=== PATIENT | female | born 1945 | race Caucasian/White ===

== ENCOUNTER 2023-07-13 13:42 | Inpatient (IN) | payer MEDICARE, OTHER, SELFPAY ==
--- NOTE | ~2023-07-13 | CT_ITS ---
EXAMINATION: CT HEAD WITHOUT CONTRAST CLINICAL INFORMATION: Atypical psychosis. COMPARISON: None. TECHNIQUE: Contiguous axial imaging was performed from the skullbase to vertex without intravenous administration of contrast. This CT examination was performed using dose optimization techniques as appropriate, variously including the following: *Automated exposure control *Adjustment of mA and/or kV according to patient size (this includes techniques or standardized protocols for targeted exams where dose is matched to indication/reason for exam; i.e. extremities or head) *Use of iterative reconstruction technique DLP: 686 mGy-cm. FINDINGS: There is no evidence of acute intracranial hemorrhage or territorial infarction. No abnormal mass effect or midline shift is seen. Reich to white matter differentiation is well preserved. No extra-axial fluid collections are identified. Moderate generalized brain parenchymal volume loss noted with concordant ex vacuo prominence of the ventricles. Mild small vessel ischemic changes present in the periventricular white matter. The osseous structures and soft tissues are normal. The mastoid air cells and visualized portions of the paranasal sinuses are well aerated. CT/CT head/brain wo IV con IMPRESSION: No acute intracranial hemorrhage or territorial infarction. Moderate diffuse brain parenchymal volume loss and mild chronic white matter microangiopathy.
[2023-07-13 13:52] VITALS: BP 195/92; BP 220/90; PULSE 103; PULSE 97; RESP 20; TEMP 36.2; O2SAT 100; O2SAT 99; BMI 29.7
--- NOTE | 2023-07-13 14:08 | PC.NURSE ---
pt biba from [facility] on section 12. section 12 states pt unable to care for self due to lack of sleep and not eating, irritable delusions, self harm and no medication compliance. pt currently denies si/hi. this rn assessed pt skin, no visible wounds from self harm noted, pt denies self harm. pt requesting to go home at this time. pt refusing labs at this time. 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 pt currently calm and cooperative.pt reports not wanting contact with son or daughter at this time. Provider aware and at bedside.
[2023-07-13 14:15] LABS: Appearance Urine Cloudy; Color Urine Yellow; Glucose Urine UA Negative (Negative); PH 6.5 (5.0-9.0); Urine Blood Negative (Negative)
[2023-07-13 14:16] LABS: Leukocyte Esterase Urine Small (1+) (Negative); Nitrite Urine Positive (Negative); Specific Gravity - Urine 1.015 (1.005-1.025); UMIC TRIGGER UACC YES; Urine Ketones Negative (Negative); Urine Protein 30 (1+) mg/dL (Neg-Trace)
[2023-07-13 14:19] LABS: Bacteria Urine 4+ (None Seen); Hyaline Casts Urine 0-2 /LPF (0-2); RBC Urine 0-2 /HPF (0-2); UACC Culture Trigger YES
--- NOTE | 2023-07-13 14:20 | ED.PSYCH ---
HPI - Psych General Chief Complaint: Behavioral Concerns Stated Complaint: SI/HTN 220/90 Time Seen by Provider: 07/13/23 14:04 Source: patient Mode of arrival: EMS Limitations: no limitations History of Present Illness HPI Narrative: patient comes to emergency room via ambulance from of psychiatric outpatient facility on a Section 12. According to EMS, patient was section for being delusional and unable to take care of herself. according to a section 12, patient is not eating, patient is not sleeping and is irritable and having delusions. When I spoke to the patient, patient is alert and oriented x3. Articulate and coherent, patient states that she went to her psychiatric session today with her daughter. She had the impression that everything was going well. When she was exiting the office, a [place] 9 police officer approached the patient and told her to go into the stretcher. Patient was confused as to why they were forcing her to get into the stretcher. Patient asked for an explanation which was not given to her. Patient became combative, had to be restrained and was brought to the emergency room. Arrival, patient calm, cooperative, states that she does not know why they would ask her to come to the emergency room because she is not suicidal or homicidal. Patient states that she has no trouble taking care of herself. In fact, patient takes care for self and also is helping to take care of her knees and will be soon helping take care of another family member who is getting a hip replacement and will be released from the hospital in the next few days. Patient states that she cooks for herself and her niece. patient states that she takes showers, keeps herself clean her house. patient states that she is very confused and upset as to why she was brought to the emergency room against her will on a Section 12 based on lies. patient suspects that this seems understanding is secondary to her daughter not liking the patient's boyfriend. Patient states that she is well aware that her children do not like her new boyfriend which she has been dating for several months. Patient states that she is a 77-year-old grown woman and has a ride to choose her partner. Patient states that she would imagine that her children would be happy for her, but instead, they keep trying to make her break up with her partner Related Data Home Medications ?Medication ?Instructions ?Recorded ?Confirmed acetaminophen 650 mg 1,300 mg PO Q12H PRN Pain, Moderate 07/13/23 07/13/23 tablet,extended release amlodipine 10 mg tablet 10 mg PO DAILY 07/13/23 07/13/23 furosemide 20 mg tablet 20 mg PO DAILY 07/13/23 07/13/23 glipizide 5 mg tablet 5 mg PO DAILY 07/13/23 07/13/23 metoprolol succinate 25 mg 25 mg PO DAILY 07/13/23 07/13/23 tablet,extended release 24 hr rosuvastatin 20 mg tablet 20 mg PO DAILY 07/13/23 07/13/23 Previous Rx's ?Medication ?Instructions ?Recorded cefuroxime axetil 250 mg tablet 250 mg PO BID #14 tabs 07/19/23 escitalopram oxalate 5 mg tablet 5 mg PO DAILY #30 tabs 07/19/23 Allergies Allergy/AdvReac Type Severity Reaction Status Date / Time No Known Allergies Allergy Verified 07/13/23 13:51 Review of Systems Review of Systems: Constitutional : No Weight loss, No Fever, No Chills, No Night Sweats, No Fatigue, No Malaise ENT/Mouth : No Hearing loss, No Ear Pain, No Nasal Congestion, No Sinus Pain, No Hoarseness, No sore throat, No Rhinorrhea, No Swallowing Difficulty Eyes: No Eye Pain, No Swelling, No Redness, No Foreign Body, No Discharge, No Vision Changes Cardiovascular : No Chest Pain, No SOB, No Dyspnea on Exertion, No Orthopnea, No Edema, No Palpitations Respiratory : No Cough, No Sputum, No Wheezing, No Smoke Exposure, No Dyspnea Gastrointestinal : No Nausea, No Vomiting, No Diarrhea, No Constipation, No abdominal Pain, No Hematochezia, No Melena Genitourinary : no irregular bleeding, No Dysuria, No Urinary Frequency, No Hematuria, No Urinary Incontinence, No Urgency, No Flank Pain, No Urinary Flow Changes, No Hesitancy Musculoskeletal : No joint pain, No Myalgias, No Joint Swelling Skin : No Skin Lesions, No rash Neuro : No Weakness, No Numbness, No Paresthesias, No Loss of Consciousness, No Dizziness, No Headache Psych : No Anxiety/Panic, No Depression, No SI/HI/AH/VH, No Social Issues, Heme/Lymph: No Bruising, No Bleeding,No Lymphadenopathy Endocrine : No Polyuria, No Polydipsia, No Temperature Intolerance PMFSH Social History Social History Household Members: Significant Other and Children Housing: House Do you presently have visiting nurse or other home services: No Alcohol intake: never Patient Tobacco Use Status: Former Tobacco user e-Cigarette/Vaping Use: Never Used Second Hand Smoke Exposure: Yes Substance Use Type: Caffiene service: No Sexual orientation: Straight/Heterosexual Physical Exam Vital Signs: Vital Signs: Last Vital Signs Temp 97.3 F 07/19/23 18:00 Pulse 59 07/19/23 18:00 Resp 16 07/19/23 18:00 BP 129/60 07/19/23 18:00 Pulse Ox 100 07/19/23 18:00 O2 Del Method Room Air 07/19/23 18:00 BMI result Body Mass Index 29.7 Const: Other: Appearance: Alert. Oriented X3. No acute distress. coherent Eyes: Pupils equal, round and reactive to light. ENT: Pharynx normal. Neck: Normal inspection. Neck supple. No lymph nodes noted. No crepitus CVS: Normal heart rate and rhythm. Pulses normal. Normal S1 and S2 Respiratory: No respiratory distress. Breath sounds normal. No Wheezing. No rales Abdomen: Soft and nontender. No rigidity. No distention. Skin: Skin warm and dry. Normal skin color. Normal skin turgor. Extremities: No lower extremity edema. No Lacerations. No Rash Neuro: Oriented X 3. No motor deficit. No sensory deficit. Moving all extremities. No slurred speech. CN 2 through 12 grossly intact Psych: calm, cooperative, normal affect Course Course Course Narrative: - patient states that she does not want to talk to her daughter as she is very upset with today's events - all of patient's labs pending - care team consult pending Medications Administered Discontinued Medications Generic Name Dose Route Start Last Admin Trade Name Freq PRN Reason Stop Dose Admin Acetaminophen 650 mg 07/13/23 19:04 07/18/23 09:31 Acetaminophen 325 Mg Tablet PO 650 mg Q6H PRN Administration Pain, Moderate(Pain Scale 4-6) Amlodipine Besylate 10 mg 07/14/23 09:00 07/20/23 09:24 Amlodipine Besylate 10 Mg Tablet PO 10 mg DAILY SOM Administration Protocol Atorvastatin Calcium 80 mg 07/14/23 09:00 07/20/23 09:24 Atorvastatin Calcium 80 Mg Tablet PO 80 mg DAILY SOM Administration Cefuroxime Axetil 500 mg 07/13/23 14:45 07/13/23 15:12 Cefuroxime Axetil 500 Mg Tablet PO 07/13/23 14:46 500 mg ONCE ONE Administration Cefuroxime Axetil 250 mg 07/14/23 09:00 07/20/23 09:24 Cefuroxime Axetil 250 Mg Tablet PO 250 mg BID SOM Administration Diphenhydramine HCl 50 mg 07/13/23 20:53 07/13/23 20:56 Diphenhydramine Hcl 25 Mg Capsule PO 07/13/23 20:54 50 mg ONCE ONE Administration Escitalopram Oxalate 5 mg 07/18/23 09:00 07/20/23 09:24 Escitalopram Oxalate 5 Mg Tablet PO 5 mg DAILY SOM Administration Furosemide 20 mg 07/14/23 09:00 07/17/23 09:35 Furosemide 20 Mg Tablet PO 20 mg DAILY SOM Administration Protocol Gabapentin 300 mg 07/19/23 21:00 07/20/23 09:24 Gabapentin 300 Mg Capsule PO 300 mg BID SOM Administration Glipizide 5 mg 07/14/23 09:00 07/17/23 09:50 Glipizide 5 Mg Tablet PO Not Given DAILY SOM Hydroxyzine HCl 25 mg 07/14/23 15:34 07/19/23 20:13 Hydroxyzine Hcl 25 Mg Tablet PO 25 mg Q6H PRN Administration Anxiety Melatonin 3 mg 07/16/23 21:23 07/19/23 20:12 Melatonin 3 Mg Tablet PO 3 mg BEDTIME PRN Administration insomnia Metoprolol Succinate 25 mg 07/14/23 09:00 07/20/23 09:24 Metoprolol Succinate Er 25 Mg Tab.Er.24h PO 25 mg DAILY SOM Administration Protocol Tramadol HCl 25 mg 07/17/23 10:56 07/17/23 11:24 Tramadol Hcl 50 Mg Tablet PO 07/17/23 10:57 25 mg ONCE ONE Administration Tramadol HCl 12.5 mg 07/18/23 10:58 07/19/23 17:10 Tramadol Hcl 50 Mg Tablet PO 12.5 mg Q6H PRN Administration Pain, Moderate(Pain Scale 4-6) Trazodone HCl 50 mg 07/14/23 15:34 07/18/23 20:53 Trazodone Hcl 50 Mg Tablet PO 50 mg BEDTIME MRX1 PRN Administration Insomnia Medical Decision Making Medical Decision Making MDM Narrative: - patient has a UTI, p.o. cefuroxime given - physician observation started at 14:30 Lab Data 07/13/23 14:36 07/17/23 11:16 Labs: Lab Results 07/13/23 07/13/23 07/14/23 Range/Units 14:08 14:36 09:53 WBC 5.9 (4.8-10.8) X10*3/uL RBC 4.69 (4.20-5.50) X10*6/uL Hgb 14.4 (12.0-16.0) g/dl Hct 42.2 (37.0-47.0) % MCV 90.0 (80.0-98.0) fL MCH 30.7 (27.0-33.0) pg MCHC 34.1 (31.0-35.0) g/dl RDW 13.9 (11.0-16.0) % Plt Count 136 L (160-400) X10*3/uL MPV 9.6 (9.4-12.3) fL Immature Gran % (Auto) 0.2 (0.0-0.4) % Neut % (Auto) 67.5 (45-73) % Lymph % (Auto) 24.6 (20-40) % Granite % (Auto) 5.7 (2-11) % Eos % (Auto) 1.5 (0-4) % Baso % (Auto) 0.5 (0-2) % Lymph # (Auto) 1.5 (1.2-4.9) X10*3/uL Granite # (Auto) 0.3 (0.1-1.2) X10*3/uL Eos # (Auto) 0.1 (0.0-0.4) X10*3/uL Baso # (Auto) 0.0 (0.0-0.2) X10*3/uL Abs Immat Gran (auto) 0.01 (0.00-0.03) X10*3/uL Absolute Neuts (auto) 4.0 (2.0-8.3) x10*3/uL Absolute Nucleated RBC 0.000 (0.0-0.012) X10*3/uL Nucleated RBC % (auto) 0.0 (0.0-0.2) /100WBC Sodium 143 (135-145) mmol/L Potassium 4.2 (3.3-5.1) mmol/L Chloride 109 H (96-108) mmol/L Carbon Dioxide 21 L (22-29) mmol/L Anion Gap 17 (12-20) BUN 17 H (9-16) mg/dL Creatinine 1.35 (0.5-1.4) mg/dL Estim Creat Clear Calc 37.3 Estimated GFR 38 Random Glucose 139 H (60-115) mg/dL Calcium 10.9 H (8.4-10.2) mg/dL Total Bilirubin 1.4 H (0.0-1.0) mg/dL AST 29 (5-31) U/L ALT 17 (0-31) U/L Alkaline Phosphatase 70 (39-117) U/L Total Protein 8.1 H (6.5-8.0) g/dL Albumin 4.6 (3.5-5.0) g/dL Urine Color Yellow Urine Appearance Cloudy Urine pH 6.5 (5.0-9.0) Ur Specific Limestone 1.015 (1.005-1.025) Urine Protein 30 (1+) H (Neg-Trace) mg/dL Urine Glucose (UA) Negative (Negative) mg/dL Urine Ketones Negative (Negative) mg/dL Urine Blood Negative (Negative) Urine Nitrite Positive H (Negative) Ur Leukocyte Esterase Small (1+) H (Negative) Urine RBC 0-2 (0-2) /HPF Urine WBC 6-10 H (0-5) /HPF Ur Squamous Epith Cells 6-10 (0-2) /HPF Urine Bacteria 4+ (None Seen) Hyaline Casts 0-2 (0-2) /LPF Urine Opiates Screen Not Detected (Not Detect) Urine Fentanyl Screen Not Detected (Not Detect) Ur Barbiturates Screen Not Detected (Not Detect) Ur Phencyclidine Scrn Not Detected (Not Detect) Ur Amphetamines Screen Not Detected (Not Detect) U Benzodiazepines Scrn Not Detected (Not Detect) Urine Cocaine Screen Not Detected (Not Detect) U Marijuana (THC) Screen Not Detected (Not Detect) Ethyl Alcohol < 10 mg/dL COVID-19 ([facility]) Negative (Negative) COVID-19 Clin Com See Note Discharge Plan Discharge Clinical Impression: Depression, Memory impairment Patient Disposition: Admitted As Inpatient Interventions: Admission Worksheet (ED) Last Done: 07/14/23 16:11 Discharge Date/Time: 07/14/23 16:12
[2023-07-13 14:21] LABS: Amphetamine Screen Urine Not Detected (Not Detect); Barbiturates, Urine Not Detected (Not Detect); Benzodiazepines Screen Urine Not Detected (Not Detect); Cannabinoid Screen Urine Not Detected (Not Detect); Cocaine Screen Urine Not Detected (Not Detect); Fentanyl, urine Not Detected (Not Detect); Opiate Screen Urine Not Detected (Not Detect); Phencyclidine Screen Urine Not Detected (Not Detect)
--- NOTE | 2023-07-13 14:30 | MHC.CARE ---
patient seen by [facility], they are sending assessment for referral.
--- NOTE | 2023-07-13 14:35 | PC.NURSE ---
pt allowed tech to draw labs at this time.
[2023-07-13 14:40] LABS: MANUAL DIFF FLAG NO
[2023-07-13 14:41] LABS: Basophils Percent Auto 0.5 % (0-2); Eosinophils Absolute Auto 0.1 X10*3/uL (0.0-0.4); Eosinophils Percent Auto 1.5 % (0-4); Hematocrit 42.2 % (37.0-47.0); Hemoglobin 14.4 g/dl (12.0-16.0); Imm Gran Abs Auto 0.01 X10*3/uL (0.00-0.03); Imm Gran Pct Auto 0.2 % (0.0-0.4); Lymphocytes Absolute Auto 1.5 X10*3/uL (1.2-4.9); Lymphocytes Percent Auto 24.6 % (20-40); Mean Corpuscular HGB Conc 34.1 g/dl (31.0-35.0); Mean Corpuscular Hemoglobin 30.7 pg (27.0-33.0); Mean Platelet Volume 9.6 fL (9.4-12.3); Monocytes Absolute Auto 0.3 X10*3/uL (0.1-1.2); Monocytes Percent Auto 5.7 % (2-11); Neutrophils Percent Auto 67.5 % (45-73); Platelet Count 136 X10*3/uL (160-400); Red Blood Count 4.69 X10*6/uL (4.20-5.50); Red Cell Distribution Width 13.9 % (11.0-16.0); White Blood Count 5.9 X10*3/uL (4.8-10.8)
--- NOTE | 2023-07-13 14:43 | PC.NURSE ---
[facility] [phone]
[2023-07-13 14:56] LABS: Alanine Aminotransferase 17 U/L (0-31); Albumin Level 4.6 g/dL (3.5-5.0); Alkaline Phosphatase 70 U/L (39-117); Anion Gap 17 (12-20); Aspartate Amino Transferase 29 U/L (5-31); Bilirubin Total 1.4 mg/dL (0.0-1.0); Blood Urea Nitrogen 17 mg/dL (9-16); Calcium 10.9 mg/dL (8.4-10.2); Carbon Dioxide 21 mmol/L (22-29); Chloride 109 mmol/L (96-108); Creatinine Clr Calc Pharmacy 37.3; Estimated Glomerular Filt Rate 38; Ethanol < 10 mg/dL; Glucose Random 139 mg/dL (60-115); Potassium 4.2 mmol/L (3.3-5.1); Sodium 143 mmol/L (135-145); Total Protein 8.1 g/dL (6.5-8.0)
[2023-07-13] MEDS: cefuroxime axetiL 500 MG TABLET PO (15:12)
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
--- NOTE | 2023-07-13 16:03 | PC.NURSE ---
PT currently playing card game with peer, in no apparent distress, respirations even and unlabored. Awaiting care team evaluation.
--- NOTE | 2023-07-13 16:42 | PC.NURSE ---
PT reports PCP is Dr. Callahan in [place], [place] . [phone].
[2023-07-13 20:04] VITALS: BP 144/64; PULSE 72; RESP 18; TEMP 36.2; O2SAT 99
[2023-07-13] MEDS: diphenhydrAMINE HCL 25 MG CAPSULE 50 MG PO (20:56)
--- NOTE | 2023-07-14 | ECG_ITS ---
Test Reason : CHECK PROLONG QT Blood Pressure : / mmHG Vent. Rate : 068 BPM Atrial Rate : 068 BPM P-R Int : 196 ms QRS Dur : 086 ms QT Int : 414 ms P-R-T Axes : 059 060 073 degrees QTc Int : 440 ms Normal sinus rhythm Normal ECG No previous ECGs available Referred By: Tahmina Mejia Electronically Signed By:YIN SOLOMON MD
[2023-07-14] MEDS: Acetaminophen 325 MG TABLET 650 MG PO ×2 (04:58→15:47)
[2023-07-14 05:12] VITALS: BP 152/64; PULSE 67; RESP 17; TEMP 36.5; O2SAT 99
--- NOTE | 2023-07-14 06:16 | PC.NURSE ---
pt assessed during the shift, pt c/o bilateral LE cramping. medicated per MAR, reassessed, reported no cramping at this time
[2023-07-14] MEDS: Metoprolol Succinate ER 25 MG TAB.ER.24H PO (09:38)
[2023-07-14] MEDS: Atorvastatin Calcium 80 MG TABLET PO (09:38)
[2023-07-14] MEDS: Furosemide 20 MG TABLET PO (09:38)
[2023-07-14] MEDS: cefuroxime axetiL 250 MG TABLET PO ×2 (09:38→20:26)
[2023-07-14] MEDS: amLODIPine Besylate 10 MG TABLET PO (09:39)
[2023-07-14 09:46] VITALS: BP 158/66; PULSE 77; RESP 16; TEMP 36.4; O2SAT 100
[2023-07-14 10:28] LABS: COVID-19 Test Negative (Negative); IDNOW Serial# 08D9AD1C
--- NOTE | 2023-07-14 15:32 | PC.NURSE ---
report given to M5
--- NOTE | 2023-07-14 15:48 | PC.NURSE ---
pt was medicated with tylenol for headache
[2023-07-14 16:30] VITALS: BP 160/69; PULSE 80; TEMP 36.3; O2SAT 99
[2023-07-14] MEDS: traZODone HCL 50 MG TABLET PO (20:26)
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
[2023-07-15 08:27] VITALS: BP 111/59; PULSE 61; RESP 16; TEMP 36.8; O2SAT 99
[2023-07-15] MEDS: Metoprolol Succinate ER 25 MG TAB.ER.24H PO (08:35)
[2023-07-15] MEDS: amLODIPine Besylate 10 MG TABLET PO (08:35)
[2023-07-15] MEDS: Furosemide 20 MG TABLET PO (08:35)
[2023-07-15] MEDS: glipiZIDE 5 MG TABLET PO (08:35)
[2023-07-15] MEDS: Atorvastatin Calcium 80 MG TABLET PO (08:35)
[2023-07-15] MEDS: cefuroxime axetiL 250 MG TABLET PO ×2 (08:35→20:59)
--- NOTE | 2023-07-15 14:57 | HO.PSYADMNOT ---
HPI Date of Service: 07/15/23 Chief Complaint: Delusions,Insomnia,Psychosis Sources of Information: patient interviewed, chart reviewed and crisis/core team assessment reviewed HPI Subjective Notes: Knowles Warning and Conditional Voluntary Narrative: Patient is a 77-year-old the patient was brought to [facility] outpatient appointment by her daughter Zoya to to the patient's change in behavior over number of months. Patient denies any significant mood difficulties The patient has been reportedly agitated with her daughter who has been confronting her mother regarding this. Patient states she has been talking to alaina carney on the phone for 10 months. Denies any other unusual experiences she and her live together better basically she states they sleep in separate bedrooms and she states they have not had an emotional relationship in a number of years. Who no new medical issues She feels that she has been having an ongoing relationship on the phone with the actor karis Gilmore and has been acting in a way that is quite unusual for her. Reportedly the actor Nicolle carney that she speaks to on her cellphone had asked her to cut her wrist improved that she loves him at for she need to lose weight because of him. Reportedly she had attempted to cut her wrists although she denies this. Patient had also has sent money reportedly. The patient did have trauma this year in November finding her son on the floor of the bathroom apparently reportedly of a heart attack she has no past psychiatric history reportedly no change in her level of functioning at home female referred by [facility] to the emergency room the patient reportedly does not have a prior psychiatric history patient denies any significant mood difficulties significant depression or manic symptoms. Past Psychiatric History: none Medical Evaluation Reviewed: Yes PMF Narrative: Hypertension History of cardiac stenting Elevated cholesterol Family History: Brother with unclear psychiatric history Social History: Patient lives with her and his son she had 4 children 1 disease this is her 2nd marriage she in her she states her although living together patient states she had a stutter when younger difficulty verbally expressing herself. 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 Substance History: None noted Trauma History: None noted Diagnostics Vital Signs (24Hr): Vital Signs - 24 hr 07/14/23 16:30 07/15/23 08:27 Temperature 97.3 F 98.2 F Pulse Rate 80 61 Respiratory Rate 16 Blood Pressure 160/69 H 111/59 L Pulse Oximetry 99 99 Oxygen Delivery Method Room Air Room Air BMI result Body Mass Index 29.7 Labs 07/13/23 14:36 07/13/23 14:36 Labs: Laboratory Results - last 48 hr 07/13/23 07/14/23 14:36 09:53 Sodium 143 Potassium 4.2 Chloride 109 H Carbon Dioxide 21 L Anion Gap 17 BUN 17 H Creatinine 1.35 Estim Creat Clear Calc 37.3 Estimated GFR 38 Random Glucose 139 H Calcium 10.9 H Total Bilirubin 1.4 H AST 29 ALT 17 Alkaline Phosphatase 70 Total Protein 8.1 H Albumin 4.6 Ethyl Alcohol < 10 COVID-19 ([facility]) Negative COVID-19 Clin Com See Note Meds/Allergies Meds Home Medications Medication Instructions Recorded Confirmed Type acetaminophen 650 mg 1,300 mg PO Q12H PRN Pain, Moderate 07/13/23 07/13/23 History tablet,extended release amlodipine 10 mg tablet 10 mg PO DAILY 07/13/23 07/13/23 History furosemide 20 mg tablet 20 mg PO DAILY 07/13/23 07/13/23 History glipizide 5 mg tablet 5 mg PO DAILY 07/13/23 07/13/23 History metoprolol succinate 25 mg 25 mg PO DAILY 07/13/23 07/13/23 History tablet,extended release 24 hr rosuvastatin 20 mg tablet 20 mg PO DAILY 07/13/23 07/13/23 History Allergies Allergies Allergy/AdvReac Type Severity Reaction Status Date / Time No Known Allergies Allergy Verified 07/13/23 13:51 Mental Status Exam Mental Status Exam Narrative: Mental Status Exam Narrative: Appearance: Casually dressed cooperative Behavior: psychomotor: Slowed ambulation complains of arthritis Speech: Clear normal volume Thought proccess linear Thought content: Significant for feeling like she is being railroaded. Denies that she would harm herself discussing her relationship on the phone with ?Karis Hancock does not care how much money he has states they frequently talk throughout the day has no insight why people might be concerned states that sometimes people are trying to imitate marker min Mood: Some anxiety Affect: Appropriate to mood SI:denies HI:denies VH/AH: Denies currently Delusions: Intense preoccupation with ?relationship with Karis Hancock Insight/judgment: Significantly impaired Memory/cog: Alert new year and month could not remember the president first said delmer had difficulty with serial sevens difficulty with attention to some degree marked lack of insight Assessment & Plan Assessment & Plan (1) Delusional disorder, erotomanic type: Status: Acute Code(s): F22 - Delusional disorders Plan Patient with gross delusional disorder question the time text of some degree of cognitive impairment recent change in behavior of her son does not appear to have a mood disorder needs neurological and metabolic workup patient did sign initial CV discussed option to put in a 3 day notice Check labs head CT scan rule out neurologically induced delusional disorder Patient educated on: diagnosis and medical condition Informed Consent: further education needed Reason for continued inpatient stay Substantial Risk for: harm to self, inability to function and rapid decompensation Statement Statement: I have reviewed the history and physical and performed a pertinent examination on my patient. No changes have occurred unless specified. If the History and Physical was not performed prior to admission, the Hospitalist's service will be consulted for completing the admission physical. Time Spent With Patient Time: Total time managing care of this patient today ____ minutes.
[2023-07-15 20:40] VITALS: BP 167/77; PULSE 75; RESP 18; TEMP 36; O2SAT 99
[2023-07-15] MEDS: hydrOXYzine HCL 25 MG TABLET PO (20:59)
[2023-07-15] MEDS: traZODone HCL 50 MG TABLET PO (20:59)
[2023-07-16 06:00] VITALS: BP 139/63; PULSE 61; RESP 16; TEMP 36.5; O2SAT 99
[2023-07-16 08:02] LABS: Calcium 10.6 mg/dL (8.4-10.2); Magnesium 2.1 mg/dL (1.6-2.6)
[2023-07-16 08:31] LABS: TSH reflex Free T4 2.75 uIU/mL (0.32-4.0)
[2023-07-16] MEDS: Atorvastatin Calcium 80 MG TABLET PO (09:14)
[2023-07-16] MEDS: glipiZIDE 5 MG TABLET PO (09:14)
[2023-07-16] MEDS: cefuroxime axetiL 250 MG TABLET PO ×2 (09:14→21:09)
[2023-07-16] MEDS: Furosemide 20 MG TABLET PO (09:14)
[2023-07-16] MEDS: Metoprolol Succinate ER 25 MG TAB.ER.24H PO (09:14)
[2023-07-16] MEDS: amLODIPine Besylate 10 MG TABLET PO (09:15)
[2023-07-16 13:42] LABS: Folate 5.4 ng/mL (> or = 4.0)
--- NOTE | 2023-07-16 16:08 | PC.NURSE ---
Pt signed a Three Day Notice on Monday07/16/2023 up on 07/20/2023.
[2023-07-16] MEDS: Acetaminophen 325 MG TABLET 650 MG PO (17:03)
[2023-07-16 20:55] VITALS: BP 119/60; PULSE 63; RESP 18; TEMP 36.4; O2SAT 96
[2023-07-16] MEDS: Melatonin 3 MG TABLET PO (21:29)
--- NOTE | 2023-07-16 22:53 | P.PNPSI_ITS ---
Subjective Subjective Date of Service: 07/16/23 Reason For Visit: Delusions,Insomnia,Psychosis Subjective Notes: Conditional Voluntary and 3 Day Interim History: Patient apparently a has been engaged with more current med and or somehow she presumed the actor marker min over the Internet over many months. Apparently there have been multiple people. She thought she was going to go [place] get to Jean jackson in on [place]. No clear auditory hallucinations marked lack insight judgment Mental Status Exam Mental Status Exam Narrative: Mental Status Exam Narrative: Appearance: Casually dressed cooperative Behavior: psychomotor: Slowed ambulation complains of arthritis Speech: Clear normal volume Thought proccess linear Thought content: Significant for feeling like she is being railroaded. Denies that she would harm herself discussing her relationship on the phone with ?Jena Hancock does not care how much money he has states they frequently talk throughout the day has no insight why people might be concerned states that sometimes people are trying to imitate marker min Mood: Some anxiety Affect: Appropriate to mood SI:denies HI:denies VH/AH: Denies currently Delusions: Intense preoccupation with ?relationship with Jean Hancock Insight/judgment: Significantly impaired Memory/cog: Alert new year and month could not remember the president first said delmer had difficulty with serial sevens difficulty with attention to some degree marked lack of insight judgment was thinking she was going to someone just off texting had given account information Diagnostics Vital Signs (24Hr): Vital Signs - 24 hr 07/16/23 06:00 07/16/23 20:55 Temperature 97.7 F 97.6 F Pulse Rate 61 63 Respiratory Rate 16 18 Blood Pressure 139/63 119/60 Pulse Oximetry 99 96 Oxygen Delivery Method Room Air Room Air BMI result Body Mass Index 29.7 Labs 07/13/23 14:36 07/13/23 14:36 Labs: Laboratory Results - last 48 hr 07/16/23 07:26 Calcium 10.6 H Magnesium 2.1 Folate 5.4 TSH 2.75 Imaging Radiology Impressions: ITS Impressions Head CT 07/15/23 16:50 IMPRESSION: No acute intracranial hemorrhage or territorial infarction. Moderate diffuse brain parenchymal volume loss and mild chronic white matter microangiopathy. Medications Medications Current Medications Acetaminophen (Acetaminophen 325 Mg Tablet) 650 mg PO Q6H PRN PRN Reason: Pain, Moderate(Pain Scale 4-6) Last Admin: 07/16/23 17:03 Dose: 650 mg Al Hydroxide/Mg Hydroxide (Magnesium Hydrox/Alum Hydrox 30 Ml Oral.Susp) 30 ml PO Q6H PRN PRN Reason: Heartburn/Nausea Amlodipine Besylate (Amlodipine Besylate 10 Mg Tablet) 10 mg PO DAILY [facility]; Protocol Last Admin: 07/16/23 09:15 Dose: 10 mg Atorvastatin Calcium (Atorvastatin Calcium 80 Mg Tablet) 80 mg PO DAILY [facility] Last Admin: 07/16/23 09:14 Dose: 80 mg Cefuroxime Axetil (Cefuroxime Axetil 250 Mg Tablet) 250 mg PO BID [facility] Last Admin: 07/16/23 21:09 Dose: 250 mg Furosemide (Furosemide 20 Mg Tablet) 20 mg PO DAILY [facility]; Protocol Last Admin: 07/16/23 09:14 Dose: 20 mg Glipizide (Glipizide 5 Mg Tablet) 5 mg PO DAILY [facility] Last Admin: 07/16/23 09:14 Dose: 5 mg Hydroxyzine HCl (Hydroxyzine Hcl 25 Mg Tablet) 25 mg PO Q6H PRN PRN Reason: Anxiety Last Admin: 07/15/23 20:59 Dose: 25 mg Magnesium Hydroxide (Milk Of Magnesia 30 Ml Oral.Susp) 30 ml PO DAILY PRN PRN Reason: Constipation Melatonin (Melatonin 3 Mg Tablet) 3 mg PO BEDTIME PRN PRN Reason: insomnia Last Admin: 07/16/23 21:29 Dose: 3 mg Metoprolol Succinate (Metoprolol Succinate Er 25 Mg Tab.Er.24h) 25 mg PO DAILY [facility]; Protocol Last Admin: 07/16/23 09:14 Dose: 25 mg Trazodone HCl (Trazodone Hcl 50 Mg Tablet) 50 mg PO BEDTIME MRX1 PRN PRN Reason: Insomnia Last Admin: 07/15/23 20:59 Dose: 50 mg Allergies Allergies Allergy/AdvReac Type Severity Reaction Status Date / Time No Known Allergies Allergy Verified 07/13/23 13:51 Assessment & Plan Assessment & Plan (1) Delusional disorder, erotomanic type: Status: Acute Code(s): F22 - Delusional disorders Plan Patient with gross delusional disorder question the time text of some degree of cognitive impairment recent change in behavior of her son does not appear to have a mood disorder needs neurological and metabolic workup patient did sign initial CV discussed option to put in a 3 day notice Check labs head CT scan rule out neurologically induced delusional disorder CT scan shows brain atrophy Patient educated on: diagnosis Informed Consent: further education needed Reason for continued inpatient stay Substantial Risk for: inability to function and rapid decompensation Time Spent With Patient Time: Total time managing care of this patient today ____ minutes.
[2023-07-17 09:34] VITALS: BP 124/59; PULSE 61; RESP 15; TEMP 36.6; O2SAT 98
[2023-07-17] MEDS: Atorvastatin Calcium 80 MG TABLET PO (09:35)
[2023-07-17] MEDS: Furosemide 20 MG TABLET PO (09:35)
[2023-07-17] MEDS: Metoprolol Succinate ER 25 MG TAB.ER.24H PO (09:35)
[2023-07-17] MEDS: Acetaminophen 325 MG TABLET 650 MG PO (09:36)
[2023-07-17] MEDS: amLODIPine Besylate 10 MG TABLET PO (09:36)
[2023-07-17] MEDS: cefuroxime axetiL 250 MG TABLET PO ×2 (09:36→21:03)
--- NOTE | 2023-07-17 10:53 | P.PNPSI_ITS ---
Subjective Subjective Date of Service: 07/17/23 Reason For Visit: Delusions,Insomnia,Psychosis Subjective Notes: Knowles Warning, Conditional Voluntary and 3 Day Interim History: Able to access patient's prior outpatient medications. Patient had been on diabetes medications she states she went off of this after losing weight. She did not remember being on medication for weight loss she had also been prescribed citalopram which she had not been taking. Did go over with patient that her kidney function BUN creatinine were elevated there is a history of hypertension history of diabetes type 2 question Lasix contributed to renal dysfunction. Patient denies overuse of nonsteroidals The patient is more willing to consider notably somewhat more open to discussion that perhaps she had been scanned and that her judgment around this perhaps have been somewhat impaired she is quite defended regarding this because her son and daughter had been depressing her. Was able taken some information somewhat more reflective she does have the 3 day again warned regarding Knowles warning that there were 3 business days side whether not to discharge the patient or file. Patient question of a froylan a manic delusional denies hallucinations versus cognitive impairment with poor judgment in relationship to multiple losses depression anxiety stop Lasix add low-dose citalopram Would more avoid Namenda of with decreased renal function patient denies that she would try to harm herself after being asked by ?yani alex? to prove her love Medication Compliance: Yes Side effects from medications: Yes Attending Groups: Yes Review of Systems Acute medical concerns: Yes inc creatinine Mental Status Exam Mental Status Exam Patient Appearance: Appropriate Patient Orientation: Person, Place, Time and Situation Level of Consciousness: Awake and Alert Patient Behavior: Talkative and Good Eye Contact Mood Description: Apprehensive Affect Description: Apprehensive Patient Cognition Impaired: No Ability to Follow Directions: Good Speech Pattern: Spontaneous Speech Memory Description: Intact Hallucinations: None Delusions: Not Present Thought Process: Illogical Thought Content: positive for [place] and positive for Circumstantial Depressive Symptoms: Increased Anxiety and Thoughts of /Suicide (denies) Abnormal Motor Activity Signs and Symptoms: Restlessness Judgement: Fair Judgement and Insight: She is somewhat more insightful executive functioning is somewhat impaired she is more open to the fact that perhaps she has been scanned and least willing to consider still think she was going to karis alex Diagnostics Vital Signs (24Hr): Vital Signs - 24 hr 07/16/23 20:55 07/17/23 09:34 Temperature 97.6 F 97.9 F Pulse Rate 63 61 Respiratory Rate 18 15 Blood Pressure 119/60 124/59 L Pulse Oximetry 96 98 Oxygen Delivery Method Room Air Room Air BMI result Body Mass Index 29.7 Labs 07/13/23 14:36 07/17/23 11:16 Labs: Laboratory Results - last 48 hr 07/16/23 07:26 Calcium 10.6 H Magnesium 2.1 Folate 5.4 TSH 2.75 Imaging Radiology Impressions: ITS Impressions Head CT 07/15/23 16:50 IMPRESSION: No acute intracranial hemorrhage or territorial infarction. Moderate diffuse brain parenchymal volume loss and mild chronic white matter microangiopathy. Medications Medications Current Medications Acetaminophen (Acetaminophen 325 Mg Tablet) 650 mg PO Q6H PRN PRN Reason: Pain, Moderate(Pain Scale 4-6) Last Admin: 07/17/23 09:36 Dose: 650 mg Al Hydroxide/Mg Hydroxide (Magnesium Hydrox/Alum Hydrox 30 Ml Oral.Susp) 30 ml PO Q6H PRN PRN Reason: Heartburn/Nausea Amlodipine Besylate (Amlodipine Besylate 10 Mg Tablet) 10 mg PO DAILY [facility]; Protocol Last Admin: 07/17/23 09:36 Dose: 10 mg Atorvastatin Calcium (Atorvastatin Calcium 80 Mg Tablet) 80 mg PO DAILY [facility] Last Admin: 07/17/23 09:35 Dose: 80 mg Cefuroxime Axetil (Cefuroxime Axetil 250 Mg Tablet) 250 mg PO BID [facility] Last Admin: 07/17/23 09:36 Dose: 250 mg Furosemide (Furosemide 20 Mg Tablet) 20 mg PO DAILY [facility]; Protocol Last Admin: 07/17/23 09:35 Dose: 20 mg Hydroxyzine HCl (Hydroxyzine Hcl 25 Mg Tablet) 25 mg PO Q6H PRN PRN Reason: Anxiety Last Admin: 07/15/23 20:59 Dose: 25 mg Magnesium Hydroxide (Milk Of Magnesia 30 Ml Oral.Susp) 30 ml PO DAILY PRN PRN Reason: Constipation Melatonin (Melatonin 3 Mg Tablet) 3 mg PO BEDTIME PRN PRN Reason: insomnia Last Admin: 07/16/23 21:29 Dose: 3 mg Metoprolol Succinate (Metoprolol Succinate Er 25 Mg Tab.Er.24h) 25 mg PO DAILY [facility]; Protocol Last Admin: 07/17/23 09:35 Dose: 25 mg Trazodone HCl (Trazodone Hcl 50 Mg Tablet) 50 mg PO BEDTIME MRX1 PRN PRN Reason: Insomnia Last Admin: 07/15/23 20:59 Dose: 50 mg Allergies Allergies Allergy/AdvReac Type Severity Reaction Status Date / Time No Known Allergies Allergy Verified 07/13/23 13:51 Assessment & Plan Assessment & Plan (1) Delusional disorder, erotomanic type: Status: Acute Code(s): F22 - Delusional disorders Plan Patient with gross delusional disorder question the time text of some degree of cognitive impairment recent change in behavior of her son does not appear to have a mood disorder needs neurological and metabolic workup patient did sign initial CV discussed option to put in a 3 day notice Check labs head CT scan rule out neurologically induced delusional disorder CT scan shows brain atrophy Lasix discontinued secondary to elevated creatinine would consider low-dose citalopram which she had been on previously consider Risperdal low-dose Reason for continued inpatient stay Substantial Risk for: harm to self, inability to function and rapid decompensation Time Spent With Patient Time: Total time managing care of this patient today ____ minutes.
[2023-07-17] MEDS: traMADoL HCL 50 MG TABLET 25 MG PO (11:24)
[2023-07-17 11:45] LABS: Estimated Average Glucose 108 mg/dL; Hemoglobin A1c % 5.4 % (<6.0)
[2023-07-17 11:48] LABS: Alanine Aminotransferase 12 U/L (0-31); Alkaline Phosphatase 58 U/L (39-117); Anion Gap 13 (12-20); Aspartate Amino Transferase 23 U/L (5-31); Bilirubin Total 0.8 mg/dL (0.0-1.0); Blood Urea Nitrogen 31 mg/dL (9-16); C Reactive Protein 0.21 mg/dL (< or = 0.50); Calcium 10.5 mg/dL (8.4-10.2); Carbon Dioxide 29 mmol/L (22-29); Chloride 107 mmol/L (96-108); Creatinine Clr Calc Pharmacy 33.4; Estimated Glomerular Filt Rate 33; Glucose Random 101 mg/dL (60-115); Potassium 4.4 mmol/L (3.3-5.1); Sodium 145 mmol/L (135-145)
[2023-07-17 11:54] LABS: Parathyroid Hormone Intact 60.8 pg/mL (8.7-77.1); Rheumatoid Factor < 13.0 IU/mL (<15.0)
[2023-07-17 12:06] LABS: Erythrocyte Sedimentation Rate 25 MM/HR (0-20)
[2023-07-17 18:20] VITALS: BP 129/59; PULSE 65; RESP 16; TEMP 36.3; O2SAT 100
[2023-07-17] MEDS: Melatonin 3 MG TABLET PO (21:03)
[2023-07-18 08:26] LABS: Syphilis Screen Nonreactive (Nonreactive)
[2023-07-18 09:09] VITALS: BP 105/53; PULSE 63; RESP 16; TEMP 37.1; O2SAT 98
[2023-07-18 09:19] VITALS: BP 127/59; PULSE 62; RESP 18
[2023-07-18] MEDS: Acetaminophen 325 MG TABLET 650 MG PO (09:31)
[2023-07-18] MEDS: cefuroxime axetiL 250 MG TABLET PO ×2 (09:32→20:55)
[2023-07-18] MEDS: Escitalopram Oxalate 5 MG TABLET PO (09:32)
[2023-07-18] MEDS: amLODIPine Besylate 10 MG TABLET PO (09:32)
[2023-07-18] MEDS: Atorvastatin Calcium 80 MG TABLET PO (09:32)
[2023-07-18] MEDS: Metoprolol Succinate ER 25 MG TAB.ER.24H PO (09:32)
[2023-07-18] MEDS: traMADoL HCL 50 MG TABLET 12.5 MG PO ×2 (12:09→20:53)
--- NOTE | 2023-07-18 16:11 | P.PNPSI_ITS ---
Subjective Subjective Date of Service: 07/18/23 Reason For Visit: Delusions,Insomnia,Psychosis Subjective Notes: 3 Day Healthcare Proxy: No Guardianship: No Medical Problems Affecting Mental Status: No Interim History: Three day notice to 07/20/23. Pt expressed anger with her daughter today for tricking me . Pt reports no depression, anxiety, riya, psychosis, no SI. Described the family members she has cared for in their end of life journey and her feelings of betrayal by her daughter. If I can do for my family, I am capable. Son Alessandro will pick her up on and she will allow a meeting with him. She asks fo no contact with her daughter. She discussed daughter's actions- daughter has written transcripts of pt's contacts with this man in question, has asked to take over pt's finances. Pt reports she is not in a scam . She states she was not asked to send money, but sent money to prove that she was not after her friend's money. She discussed feeling that her human rights have been violated-as she feels daughter wants to control her activity, whom she chooses to talk with, spend time with, engage in activity with. Pt believes this man was going to propose marriage to her and she was happy with this as her first marriage was not satisfactory for her needs. My relationship with my daugher is over, forever. I don't like what has happened and I will never get over this. Pt reports she does not want further OP care- she will discuss with her PCP and may possibly attend [facility] if she feels this is needed in the future. Reports trust in her PCP and reports her PCP has knowledge of daughter and her actions as she has tried to do this before to pt when seeing her PCP. Medication Compliance: Yes Side effects from medications: No Attending Groups: Intermittent Review of Systems Acute medical concerns: No Medical Review of Systems: unchanged Review of Systems Review of Systems Yes all other systems are reviewed and are negative (denies) Mental Status Exam Mental Status Exam Patient Appearance: Appropriate Patient Orientation: Person, Place, Time and Situation Level of Consciousness: Alert Patient Behavior: Talkative and Good Eye Contact Mood Description: Apprehensive Affect Description: Apprehensive Patient Cognition Impaired: No Ability to Follow Directions: Good Speech Pattern: Spontaneous Speech Memory Description: Intact Hallucinations: None Delusions: Not Present Thought Process: Illogical Thought Content: positive for [place], positive for Circumstantial and positive for Suicidal Ideation (denies) Depressive Symptoms: Increased Anxiety and Thoughts of /Suicide (denies) Abnormal Motor Activity Signs and Symptoms: Restlessness Judgement: Fair Diagnostics Vital Signs (24Hr): Vital Signs - 24 hr 07/17/23 18:20 07/18/23 09:09 07/18/23 09:19 Temperature 97.3 F 98.7 F Pulse Rate 65 63 62 Respiratory Rate 16 16 18 Blood Pressure 129/59 L 105/53 L 127/59 L Pulse Oximetry 100 98 Oxygen Delivery Method Room Air Room Air BMI result Body Mass Index 29.7 Labs 07/13/23 14:36 07/17/23 11:16 Labs: Laboratory Results - last 48 hr 07/16/23 07/17/23 07:26 11:16 ESR 25 H Sodium 145 Potassium 4.4 Chloride 107 Carbon Dioxide 29 Anion Gap 13 BUN 31 H Creatinine 1.51 H Estim Creat Clear Calc 33.4 Estimated GFR 33 Random Glucose 101 Estimat Average Glucose 108 Hemoglobin A1c % 5.4 Calcium 10.5 H Total Bilirubin 0.8 AST 23 ALT 12 Alkaline Phosphatase 58 C-Reactive Protein 0.21 Total Protein 7.0 Albumin 4.0 PTH Intact 60.8 Rheumatoid Factor < 13.0 T.pallidum Ab (EIA) Nonreactive Imaging Radiology Impressions: ITS Impressions Head CT 07/15/23 16:50 IMPRESSION: No acute intracranial hemorrhage or territorial infarction. Moderate diffuse brain parenchymal volume loss and mild chronic white matter microangiopathy. Medications Medications Current Medications Acetaminophen (Acetaminophen 325 Mg Tablet) 650 mg PO Q6H PRN PRN Reason: Pain, Moderate(Pain Scale 4-6) Last Admin: 07/18/23 09:31 Dose: 650 mg Al Hydroxide/Mg Hydroxide (Magnesium Hydrox/Alum Hydrox 30 Ml Oral.Susp) 30 ml PO Q6H PRN PRN Reason: Heartburn/Nausea Amlodipine Besylate (Amlodipine Besylate 10 Mg Tablet) 10 mg PO DAILY [facility]; Protocol Last Admin: 07/18/23 09:32 Dose: 10 mg Atorvastatin Calcium (Atorvastatin Calcium 80 Mg Tablet) 80 mg PO DAILY [facility] Last Admin: 07/18/23 09:32 Dose: 80 mg Cefuroxime Axetil (Cefuroxime Axetil 250 Mg Tablet) 250 mg PO BID [facility] Last Admin: 07/18/23 09:32 Dose: 250 mg Escitalopram Oxalate (Escitalopram Oxalate 5 Mg Tablet) 5 mg PO DAILY [facility] Last Admin: 07/18/23 09:32 Dose: 5 mg Hydroxyzine HCl (Hydroxyzine Hcl 25 Mg Tablet) 25 mg PO Q6H PRN PRN Reason: Anxiety Last Admin: 07/15/23 20:59 Dose: 25 mg Magnesium Hydroxide (Milk Of Magnesia 30 Ml Oral.Susp) 30 ml PO DAILY PRN PRN Reason: Constipation Melatonin (Melatonin 3 Mg Tablet) 3 mg PO BEDTIME PRN PRN Reason: insomnia Last Admin: 07/17/23 21:03 Dose: 3 mg Metoprolol Succinate (Metoprolol Succinate Er 25 Mg Tab.Er.24h) 25 mg PO DAILY [facility]; Protocol Last Admin: 07/18/23 09:32 Dose: 25 mg Tramadol HCl (Tramadol Hcl 50 Mg Tablet) 12.5 mg PO Q6H PRN PRN Reason: Pain, Moderate(Pain Scale 4-6) Last Admin: 07/18/23 12:09 Dose: 12.5 mg Trazodone HCl (Trazodone Hcl 50 Mg Tablet) 50 mg PO BEDTIME MRX1 PRN PRN Reason: Insomnia Last Admin: 07/15/23 20:59 Dose: 50 mg Allergies Allergies Allergy/AdvReac Type Severity Reaction Status Date / Time No Known Allergies Allergy Verified 07/13/23 13:51 Assessment & Plan Assessment & Plan (1) Delusional disorder, erotomanic type: Status: Acute Code(s): F22 - Delusional disorders Plan Patient with gross delusional disorder question the time text of some degree of cognitive impairment recent change in behavior of her son does not appear to have a mood disorder needs neurological and metabolic workup patient did sign initial CV discussed option to put in a 3 day notice Check labs head CT scan rule out neurologically induced delusional disorder CT scan shows brain atrophy 07/18/23 Three day notice to 07/20/23 Pt will allow a meeting with her son prior to discharge Declines meeting with her daughter Declines out patient referrals. Patient educated on: therapeutic strategies Informed Consent: understands and further education needed Reason for continued inpatient stay Substantial Risk for: harm to self Time Spent With Patient Time: Total time managing care of this patient today ____ minutes.
[2023-07-18 18:20] VITALS: BP 145/69; PULSE 61; RESP 16; TEMP 36.4; O2SAT 99
[2023-07-18] MEDS: hydrOXYzine HCL 25 MG TABLET PO (20:53)
[2023-07-18] MEDS: traZODone HCL 50 MG TABLET PO (20:53)
[2023-07-18] MEDS: Melatonin 3 MG TABLET PO (20:56)
[2023-07-19 08:00] VITALS: BP 132/60; PULSE 59; TEMP 36.4; O2SAT 97
[2023-07-19] MEDS: Atorvastatin Calcium 80 MG TABLET PO (09:11)
[2023-07-19] MEDS: amLODIPine Besylate 10 MG TABLET PO (09:11)
[2023-07-19] MEDS: Metoprolol Succinate ER 25 MG TAB.ER.24H PO (09:11)
[2023-07-19] MEDS: Escitalopram Oxalate 5 MG TABLET PO (09:11)
[2023-07-19] MEDS: cefuroxime axetiL 250 MG TABLET PO ×2 (09:11→20:12)
[2023-07-19 14:27] LABS: Vitamin B12 220 pg/mL (200-900)
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
[2023-07-19] MEDS: traMADoL HCL 50 MG TABLET 12.5 MG PO (17:10)
[2023-07-19] MEDS: Gabapentin 300 MG CAPSULE PO (17:36)
[2023-07-19 18:00] VITALS: BP 129/60; PULSE 59; RESP 16; TEMP 36.3; O2SAT 100
[2023-07-19] MEDS: Melatonin 3 MG TABLET PO (20:12)
[2023-07-19] MEDS: hydrOXYzine HCL 25 MG TABLET PO (20:13)
[2023-07-20] MEDS: Gabapentin 300 MG CAPSULE PO (09:24)
[2023-07-20] MEDS: Escitalopram Oxalate 5 MG TABLET PO (09:24)
[2023-07-20] MEDS: cefuroxime axetiL 250 MG TABLET PO (09:24)
[2023-07-20] MEDS: amLODIPine Besylate 10 MG TABLET PO (09:24)
[2023-07-20] MEDS: Atorvastatin Calcium 80 MG TABLET PO (09:24)
[2023-07-20] MEDS: Metoprolol Succinate ER 25 MG TAB.ER.24H PO (09:24)
--- NOTE | 2023-07-20 17:35 | P.DS_ITS ---
DS: Providers Provider Date of Service: 07/20/23 Date of admission: 07/14/23 15:33 Date of discharge: 07/20/23 Primary care physician: Unknown Physician Admitting clinician: Scott Alarcon Attending physician on admission: Scott Alarcon Attending physician on discharge: Scott Alarcon Discharging clinician: Nathalie Guajardo DS: Diagnosis Discharge Diagnosis (1) Delusional disorder, erotomanic type: Status: Acute DS: Medications Discharge Medications Home Medications: Home Medications Medication Instructions Recorded Confirmed acetaminophen 650 mg 1,300 mg PO Q12H PRN Pain, Moderate 07/13/23 07/13/23 tablet,extended release amlodipine 10 mg tablet 10 mg PO DAILY 07/13/23 07/13/23 furosemide 20 mg tablet 20 mg PO DAILY 07/13/23 07/13/23 glipizide 5 mg tablet 5 mg PO DAILY 07/13/23 07/13/23 metoprolol succinate 25 mg 25 mg PO DAILY 07/13/23 07/13/23 tablet,extended release 24 hr rosuvastatin 20 mg tablet 20 mg PO DAILY 07/13/23 07/13/23 Previous Rx's Medication Instructions Recorded cefuroxime axetil 250 mg tablet 250 mg PO BID #14 tabs 07/19/23 escitalopram oxalate 5 mg tablet 5 mg PO DAILY #30 tabs 07/19/23 Mental Status Exam Mental Status Exam Patient Appearance: Appropriate Patient Orientation: Person, Place, Time and Situation Level of Consciousness: Alert Patient Behavior: Talkative and Good Eye Contact Mood Description: Apprehensive Affect Description: Apprehensive Patient Cognition Impaired: No Ability to Follow Directions: Good Speech Pattern: Spontaneous Speech Memory Description: Intact Hallucinations: None Delusions: Not Present Thought Process: Illogical Thought Content: positive for [place], positive for Circumstantial and positive for Suicidal Ideation (denies) Depressive Symptoms: Increased Anxiety and Thoughts of /Suicide (denies) Abnormal Motor Activity Signs and Symptoms: Restlessness Judgement: Fair Data Data Completed and Pending Completed studies during hospitalization [Text1]: 07/14/23 07/16/23 07/17/23 09:53 07:26 11:16 ESR 25 H Sodium 145 Potassium 4.4 Chloride 107 Carbon Dioxide 29 Anion Gap 13 BUN 31 H Creatinine 1.51 H Estim Creat Clear Calc 33.4 Estimated GFR 33 Random Glucose 101 Estimat Average Glucose 108 Hemoglobin A1c % 5.4 Calcium 10.6 H 10.5 H Magnesium 2.1 Total Bilirubin 0.8 AST 23 ALT 12 Alkaline Phosphatase 58 C-Reactive Protein 0.21 Total Protein 7.0 Albumin 4.0 Vitamin B12 220 Folate 5.4 TSH 2.75 PTH Intact 60.8 Rheumatoid Factor < 13.0 T.pallidum Ab (EIA) Nonreactive COVID-19 ([facility]) Negative COVID-19 Clin Com See Note 07/13/23 Unknown Urine clean catch - Urine bond top Urine Culture - Final Escherichia coli Imaging Diagnostic Imaging Impressions Head CT 07/15/23 16:50 IMPRESSION: No acute intracranial hemorrhage or territorial infarction. Moderate diffuse brain parenchymal volume loss and mild chronic white matter microangiopathy. DS: Summary Hospital Course Hospital Course: Admission to adult psychiatry for exacerbation of delusional disorder with memory impairment. Lexapro was initiated. Pt declined several interventions. Neuro psych testing is recommended, however pt declined at this time. She returns to her home to her PCP and to [facility] for further out patient care. Status at Discharge Functional status at discharge: independent ambulation Overall status at discharge: patient is progressing back to baseline Time Spent with Patient Time attestation: Total time managing care of this patient today ____ minutes. Time spent: Greater than 30 minutes Discharge Plan Discharge Anticipated Discharge Date/Time: 07/20/23 12:00 Patient Disposition: Home, Self-Care Discharge Diagnosis: Delusional Disorder Memory Impairment Referrals: [Other] - 07/26/23 3:30 pm (IN OFFICE) [facility] [place] [facility] [Other] - 1 Week [facility] [Other] - 3-5 Days (Contact them for services and counseling appointments.) Discharge Medications: New cefuroxime axetil 250 mg Tablet 250 mg PO BID Qty: 14 0RF escitalopram oxalate 5 mg Tablet 5 mg PO DAILY Qty: 30 0RF Continued acetaminophen 650 mg Tablet Extended Release 1,300 mg PO Q12H PRN (Reason: Pain, Moderate) amlodipine 10 mg Tablet 10 mg PO DAILY furosemide 20 mg Tablet 20 mg PO DAILY metoprolol succinate 25 mg Tablet Extended Release 24 Hr 25 mg PO DAILY glipizide 5 mg Tablet 5 mg PO DAILY rosuvastatin 20 mg tablet 20 mg PO DAILY Discharge Orders: Discharge Order (Routine); Ordered 07/19/23 Ordered By: Nathalie Guajardo Diet: Advance to usual diet Activity on Discharge: As tolerated Stand Alone Forms: Patient Portal Discharge page, Community Support Care Plan Goals: Mood and Behavioral Stabilization Health Concerns: Mood and Behavioral Stabilization Plan of Treatment: Deanne declines further in patient treatment. We have initiated a small dose of antidepressant, Lexapro Ceftin for UTI will complete in seven days. We recommend Multivitamins and B-Complex supplements if she agrees. CAT Scan of the Brain shows moderate diffuse brain parenchymal volume loss and mild chronic white matter microangiopathy which correlates with aging. We recommend out patient psychological testing for further assessment of presenting symptoms. We suggest an appointment with Dr. Garner [phone] for further assssment if Deanne agrees. Assessment: Discharge on a three day notice of intent Discharge Date/Time: 07/20/23 11:10
== END 2023-07-20 11:10 | disposition home or self-care (01) | DRG 885 ==
LOC: HO.ED 07-14 09:21 → HO.PM5 07-14 15:43
PROVIDERS: Emergency Medicine Emergency Medical Services; Psychiatry & Neurology Psychiatry; Admitting Provider Clinical Nurse Specialist Psychiatric/Mental Health, Adult; Emergency Provider Emergency Medicine; Visit Provider Clinical Nurse Specialist Psychiatric/Mental Health, Adult
DX: F22 Delusional disorders (principal); R41.3 Other amnesia; Z20.822 Contact with and (suspected) exposure to COVID-19; Z91.148 Patient's other noncompliance with medication regimen for other reason; Z87.891 Personal history of nicotine dependence; Z79.84 Long term (current) use of oral hypoglycemic drugs; Z79.899 Other long term (current) drug therapy
CPT/HCPCS: 36415; 70450; 80053; 80307; 81001; 82310; 82607; 82746; 83036; 83735; 83970; 84443; 85025; 85652; 86140; 86431; 86780; 87086; 87088; 87186; 87635; 93005; 97161; 99285

== ENCOUNTER → 2023-07-14 10:05 | Outpatient (BNV) | payer MEDICARE, SELFPAY | PROVIDERS: Emergency Provider Emergency Medicine; Visit Provider Internal Medicine Cardiovascular Disease | DX: I45.81 Long QT syndrome (principal) | CPT/HCPCS: 93010 ==

== ENCOUNTER → 2023-07-14 15:33 | Outpatient (BNV) | payer MEDICARE, SELFPAY | PROVIDERS: Admitting Provider Clinical Nurse Specialist Psychiatric/Mental Health, Adult; Emergency Provider Emergency Medicine; Visit Provider Psychiatry & Neurology Psychiatry | DX: F22 Delusional disorders (principal) | CPT/HCPCS: 90792; 99231; 99232 ==

== ENCOUNTER → 2023-07-14 15:33 | Outpatient (BNV) | payer OTHER, SELFPAY | PROVIDERS: Admitting Provider Clinical Nurse Specialist Psychiatric/Mental Health, Adult; Emergency Provider Emergency Medicine; Visit Provider Clinical Nurse Specialist Psychiatric/Mental Health, Adult | DX: F22 Delusional disorders (principal) | CPT/HCPCS: 99231; 99238 ==